=== PATIENT | male | born 1950 | race Caucasian/White ===

== ENCOUNTER 2017-10-14 09:59 | Emergency (ER) | payer OTHER ==
[~2017-10-14 09:59] MED LIST: ACET-1079 PO; GABA300C10 PO; HYDR2TAB58 PO; INSUINJ37 SUBCUT; OMEP2SUS; SIMV-13 PO; [UNRECOGNIZED DRUG - CODE] PO
[2017-10-14] MEDS ORDERED: EPINEPHrine HCL 1 MG/10 ML SYRG IV ONE (10:00)
[2017-10-14] MEDS ORDERED: SODIUM BICARBONATE 8.4% INJ 50ML SYRINGE IV ONE (10:00)
[2017-10-14] MEDS ORDERED: CALCIUM CHL(10%) 100MG/ML 10ML VIAL IV ONE (10:00)
[2017-10-14] MEDS ORDERED: EPINEPHrine HCL 1 MG/10 ML SYRG ONE ×2 (10:28→10:41)
[2017-10-14 10:34] VITALS: BP 136/88
[2017-10-14] MEDS ORDERED: SODIUM BICARBONATE 8.4% INJ 50ML SYRINGE ONE (10:45)
[2017-10-14 11:10] LABS: Hemoglobin 13.6 g/dL (13.5-17.5); Mean Corpuscular Volume 104.1 fL (80.0-100.0)
[2017-10-14 11:11] LABS: Mean Corpuscular Hemoglobin 30.1 pg (28.0-32.0); Mean Corpuscular Hgb Conc. 28.9 g/dL (32.0-36.0); Platelet Count (auto) 219 10^3/uL (140-450); Red Blood Cells 4.52 10^6/uL (4.5-5.90); Red Cell Distribution Width 15.1 % (11.8-14.3)
[2017-10-14 11:22] LABS: Basophils % (manual) 0 (0.0-2.0); Blast Cells 0; Eosinophils % (manual) 0 (0-7); Metamyelocytes % 0; Myelocytes % 0; Promyelocytes % 0; Reactive Lymphocytes 0
[2017-10-14 11:27] LABS: Albumin 1.9 g/dL (3.4-5.0); BUN/Creatinine Ratio 18.2; Bilirubin, Total 0.9 mg/dL (0.2-1.0); Calcium 9.4 mg/dL (8.5-10.1); Magnesium 2.9 mg/dL (1.6-2.6); Potassium 5.3 mmol/L (3.5-5.1); Total Protein 7.2 g/dL (6.4-8.2)
[2017-10-14 11:40] LABS: INR 1.49 (0.9-1.15)
[2017-10-14 13:59] LABS: Band Neutrophils % (manual) 14; Lymphocytes % (manual) 18 (10.0-50.0); Monocytes % (manual) 10 (0-12)
== END 2017-10-14 15:14 | disposition expired ==
LOC: ER 09:59 → EDBD 09:59 → ER 15:14
DX: I46.9 Cardiac arrest, cause unspecified (principal); J18.9 Pneumonia, unspecified organism; A41.9 Sepsis, unspecified organism; K72.90 Hepatic failure, unspecified without coma; E43 Unspecified severe protein-calorie malnutrition; I25.10 Atherosclerotic heart disease of native coronary artery without angina pectoris; I11.0 Hypertensive heart disease with heart failure; I50.9 Heart failure, unspecified; E11.10 Type 2 diabetes mellitus with ketoacidosis without coma; K21.9 Gastro-esophageal reflux disease without esophagitis; E78.5 Hyperlipidemia, unspecified; I25.2 Old myocardial infarction; Z90.49 Acquired absence of other specified parts of digestive tract
CPT/HCPCS: 36415; 36600; 71045; 80053; 82805; 83735; 84484; 85007; 85027; 85379; 85610; 85730; 92950; 93005; 94761; 99285; J0171; 94002